=== PATIENT | male | born 1965 | race African-American/Black ===

== ENCOUNTER 2016-12-02 13:07 | Inpatient (IN) | payer OTHER ==
[2016-12-02 16:00] VITALS: BMI 27.3
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
[2016-12-02] MEDS ORDERED: guaiFENesin/D-METHORPHAN HB 10 ML UNIT-DOSE CUPS PO PRN (17:34)
[2016-12-02] MEDS ORDERED: MENTHOL/PHENOL 1 EACH UD MM PRN (17:34)
[2016-12-02] MEDS ORDERED: MAG HYDROX/AL HYDROX/SIMETH 30 ML UNIT-DOSE CUP PO PRN (17:34)
[2016-12-02] MEDS ORDERED: ACETAMINOPHEN 325 MG TABLET (FP) PO PRN (17:34)
[2016-12-02] MEDS ORDERED: LOPERAMIDE HCL 2 MG CAPSULE PO PRN (17:34)
[2016-12-02] MEDS ORDERED: P-EPHED 60MG/TRIPROLIDI 2.5MG TABLET PO PRN (17:34)
[2016-12-02] MEDS ORDERED: MAGNESIUM HYDROX 2400MG/30ML ORAL SUSPENSION 30 ML CUP PO PRN (17:34)
[2016-12-02] MEDS ORDERED: MAGNESIUM CITRATE 300 ML BOTTLE PO PRN (17:34)
[2016-12-02] MEDS ORDERED: diphenhydrAMINE HCL 50 MG CAPSULE PO PRN (17:34)
--- NOTE | 2016-12-02 20:26 | PN ---
[facility] Progress Note Note: Psychiatry Attending-planning consultant note : Called by nurse to enter orders for medications for Jose Sage. 51 y/o male with issues of cocaine,marijuana,nicotine dependence. Co-morbid with bipolar II disorder.[facility] report is appreciated.Normal vitals. Patient completed detox at [facility].Discharged this morning. Medications :risperdal 1 mg po bid + gabapentin 600 mg po tid + zoloft 100 mg po daily. Reconciled.Doses confirmed via review of pharmacy claims (10/20/16 + 11/08/16) @ [employer]. Brief contact with the patient by telephone.History taken and medications verified.Clear historian. Orders entered for : Gabapentin 600 mg po tid Zoloft 100 mg po daily Risperdal 1 mg po bid Side effects/benefits reviewed with patient. Mr Sage insists on continuing his medications. Discussed with nurse on duty.
[2016-12-02] MEDS ORDERED: GABAPENTIN 300 MG CAPSULE (FP) PO SCH (22:00)
[2016-12-02] MEDS: risperiDONE 1 MG TABLET (FP) PO SCH (22:11)
[2016-12-02] MEDS: THIAMINE HCL 100 MG TABLET (FP) PO SCH (22:12)
[2016-12-02] MEDS: GABAPENTIN 300 MG CAPSULE (FP) PO SCH (22:12)
[2016-12-02 23:39] LABS: URINE APPEARANCE CLEAR; URINE BILIRUBIN NEGATIVE (NEGATIVE); URINE BLOOD NEGATIVE (NEGATIVE); URINE COLOR YELLOW; URINE GLUCOSE (UA) NEGATIVE (NEGATIVE); URINE KETONE NEGATIVE (NEGATIVE); URINE LEUK ESTERASE NEGATIVE (NEGATIVE); URINE NITRITE NEGATIVE (NEGATIVE); URINE PROTEIN NEGATIVE (NEGATIVE); URINE UROBILINOGEN NEGATIVE E.U./dl (0.2-1.0)
[2016-12-03] MEDS ORDERED: INFLUENZA VACCINE 45 MCG/0.5 ML (MDV 16-17) IM ONE ×2 (06:00→12:00)
[2016-12-03] MEDS: GABAPENTIN 300 MG CAPSULE (FP) PO SCH ×3 (06:32→21:51)
[2016-12-03 10:08] LABS: ALBUMIN 3.4 g/dl (3.4-5.0); ANION GAP 8 (8-16); CALCIUM 8.6 mg/dL (8.5-10.1); CO2 26 mmol/L (21-32); GLUCOSE,RANDOM 88 mg/dL (74-106)
[2016-12-03 10:11] LABS: ALK PHOS 74 U/L (45-117); BILIRUBIN,TOTAL 0.2 mg/dL (0.2-1.0); CREATININE 0.8 mg/dL (0.7-1.3); SGOT/AST 15 U/L (15-37); SGPT/ALT 26 U/L (12-78); TOT PROT 6.8 g/dl (6.4-8.2)
[2016-12-03] MEDS: PRENATAL VITAMINS W/ FOLIC ACID TABLET (FP) PO SCH (10:11)
[2016-12-03] MEDS: risperiDONE 1 MG TABLET (FP) PO SCH ×2 (10:11→21:51)
[2016-12-03] MEDS: SERTRALINE HCL 50 MG TABLET (FP) PO SCH (10:11)
[2016-12-03] MEDS: NICOTINE 14 MG/24 HOURS TOPICAL PATCH TD SCH (10:13)
--- NOTE | 2016-12-03 11:10 | EKG ---
Test Reason : Blood Pressure : / mmHG Vent. Rate : 071 BPM Atrial Rate : 065 BPM P-R Int : 000 ms QRS Dur : 102 ms QT Int : 404 ms P-R-T Axes : 000 060 061 degrees QTc Int : 439 ms POOR DATA QUALITY, INTERPRETATION MAY BE ADVERSELY AFFECTED NORMAL SINUS RHYTHM SEPTAL INFARCT , AGE UNDETERMINED ABNORMAL ECG NO PREVIOUS ECGS AVAILABLE Confirmed by EDDIE LI MD ([id number]) on 12/03/2016 11:10:32 AM Referred By: Confirmed By:EDDIE LI MD
[2016-12-03 11:59] LABS: HIV 1 & 2 AB NEGATIVE; HIV 1 AGp24 NEGATIVE
[2016-12-03 15:33] LABS: MCH 28.8 pg (25.7-33.7); MCHC 33.3 g/dl (32.0-35.9); MEAN CELL VOLUME 86.5 fl (80-96); MEAN PLT VOLUME 7.4 fl (7.5-11.1); PLATELET COUNT 267 K/MM3 (134-434); RDW 13.7 % (11.9-15.9); WHITE BLOOD COUNT 4.8 K/mm3 (4.0-10.0)
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
[2016-12-03] MEDS: THIAMINE HCL 100 MG TABLET (FP) PO SCH (21:51)
[2016-12-04] MEDS: GABAPENTIN 300 MG CAPSULE (FP) PO SCH ×3 (06:21→21:38)
[2016-12-04] MEDS: risperiDONE 1 MG TABLET (FP) PO SCH ×2 (09:58→21:38)
[2016-12-04] MEDS: NICOTINE 14 MG/24 HOURS TOPICAL PATCH TD SCH (09:58)
[2016-12-04] MEDS: PRENATAL VITAMINS W/ FOLIC ACID TABLET (FP) PO SCH (09:58)
[2016-12-04] MEDS: SERTRALINE HCL 50 MG TABLET (FP) PO SCH (09:58)
[2016-12-04] MEDS: THIAMINE HCL 100 MG TABLET (FP) PO SCH (21:38)
[2016-12-05] MEDS: GABAPENTIN 300 MG CAPSULE (FP) PO SCH ×3 (06:26→21:11)
[2016-12-05] MEDS: NICOTINE 14 MG/24 HOURS TOPICAL PATCH TD SCH (10:02)
[2016-12-05] MEDS: SERTRALINE HCL 50 MG TABLET (FP) PO SCH (10:02)
[2016-12-05] MEDS: PRENATAL VITAMINS W/ FOLIC ACID TABLET (FP) PO SCH (10:02)
[2016-12-05] MEDS: risperiDONE 1 MG TABLET (FP) PO SCH ×2 (10:02→21:11)
[2016-12-05] MEDS: THIAMINE HCL 100 MG TABLET (FP) PO SCH (21:11)
[2016-12-06] MEDS: GABAPENTIN 300 MG CAPSULE (FP) PO SCH ×3 (07:01→21:34)
[2016-12-06] MEDS: NICOTINE 14 MG/24 HOURS TOPICAL PATCH TD SCH (09:51)
[2016-12-06] MEDS: risperiDONE 1 MG TABLET (FP) PO SCH ×2 (09:51→21:33)
[2016-12-06] MEDS: SERTRALINE HCL 50 MG TABLET (FP) PO SCH (09:51)
[2016-12-06] MEDS: PRENATAL VITAMINS W/ FOLIC ACID TABLET (FP) PO SCH (09:51)
[2016-12-06] MEDS: THIAMINE HCL 100 MG TABLET (FP) PO SCH (21:33)
[2016-12-07] MEDS: GABAPENTIN 300 MG CAPSULE (FP) PO SCH ×3 (06:22→21:24)
[2016-12-07] MEDS: SERTRALINE HCL 50 MG TABLET (FP) PO SCH (10:00)
[2016-12-07] MEDS: risperiDONE 1 MG TABLET (FP) PO SCH ×2 (10:00→21:23)
[2016-12-07] MEDS: PRENATAL VITAMINS W/ FOLIC ACID TABLET (FP) PO SCH (10:00)
[2016-12-07] MEDS: NICOTINE 14 MG/24 HOURS TOPICAL PATCH TD SCH (10:01)
[2016-12-07] MEDS: hydrOXYzine PAMOATE 50 MG CAPSULE (FP) PO PRN (15:22)
[2016-12-07] MEDS: NICOTINE POLACRILEX 2 MG GUM BC PRN (15:23)
[2016-12-07] MEDS: THIAMINE HCL 100 MG TABLET (FP) PO SCH (21:24)
[2016-12-08] MEDS: GABAPENTIN 300 MG CAPSULE (FP) PO SCH ×3 (06:17→21:27)
[2016-12-08] MEDS: SERTRALINE HCL 50 MG TABLET (FP) PO SCH (09:36)
[2016-12-08] MEDS: PRENATAL VITAMINS W/ FOLIC ACID TABLET (FP) PO SCH (09:36)
[2016-12-08] MEDS: risperiDONE 1 MG TABLET (FP) PO SCH ×2 (09:36→21:27)
[2016-12-08] MEDS: NICOTINE 14 MG/24 HOURS TOPICAL PATCH TD SCH (09:36)
[2016-12-08] MEDS: THIAMINE HCL 100 MG TABLET (FP) PO SCH (21:27)
[2016-12-08] MEDS: hydrOXYzine PAMOATE 50 MG CAPSULE (FP) PO PRN (21:27)
[2016-12-09] MEDS: GABAPENTIN 300 MG CAPSULE (FP) PO SCH ×3 (06:52→21:43)
[2016-12-09] MEDS: NICOTINE 14 MG/24 HOURS TOPICAL PATCH TD SCH (09:50)
[2016-12-09] MEDS: PRENATAL VITAMINS W/ FOLIC ACID TABLET (FP) PO SCH (09:50)
[2016-12-09] MEDS: SERTRALINE HCL 50 MG TABLET (FP) PO SCH (09:50)
[2016-12-09] MEDS: risperiDONE 1 MG TABLET (FP) PO SCH ×2 (09:50→21:43)
[2016-12-09] MEDS: THIAMINE HCL 100 MG TABLET (FP) PO SCH (21:43)
[2016-12-10] MEDS: GABAPENTIN 300 MG CAPSULE (FP) PO SCH ×3 (06:34→21:33)
[2016-12-10] MEDS: NICOTINE 14 MG/24 HOURS TOPICAL PATCH TD SCH (10:15)
[2016-12-10] MEDS: PRENATAL VITAMINS W/ FOLIC ACID TABLET (FP) PO SCH (10:15)
[2016-12-10] MEDS: risperiDONE 1 MG TABLET (FP) PO SCH ×2 (10:16→21:33)
[2016-12-10] MEDS: SERTRALINE HCL 50 MG TABLET (FP) PO SCH (10:16)
[2016-12-10] MEDS: THIAMINE HCL 100 MG TABLET (FP) PO SCH (21:33)
[2016-12-10] MEDS: NICOTINE POLACRILEX 2 MG GUM BC PRN (21:34)
[2016-12-11] MEDS: GABAPENTIN 300 MG CAPSULE (FP) PO SCH ×3 (06:32→22:04)
[2016-12-11] MEDS: risperiDONE 1 MG TABLET (FP) PO SCH ×2 (09:38→22:04)
[2016-12-11] MEDS: PRENATAL VITAMINS W/ FOLIC ACID TABLET (FP) PO SCH (09:38)
[2016-12-11] MEDS: SERTRALINE HCL 50 MG TABLET (FP) PO SCH (09:38)
[2016-12-11] MEDS: NICOTINE 14 MG/24 HOURS TOPICAL PATCH TD SCH (09:38)
[2016-12-11] MEDS: THIAMINE HCL 100 MG TABLET (FP) PO SCH (22:04)
[2016-12-11] MEDS: NICOTINE POLACRILEX 2 MG GUM BC PRN (22:05)
[2016-12-12] MEDS: GABAPENTIN 300 MG CAPSULE (FP) PO SCH ×3 (07:02→21:31)
[2016-12-12] MEDS: risperiDONE 1 MG TABLET (FP) PO SCH ×2 (09:46→21:31)
[2016-12-12] MEDS: PRENATAL VITAMINS W/ FOLIC ACID TABLET (FP) PO SCH (09:46)
[2016-12-12] MEDS: SERTRALINE HCL 50 MG TABLET (FP) PO SCH (09:46)
[2016-12-12] MEDS: NICOTINE 14 MG/24 HOURS TOPICAL PATCH TD SCH (09:47)
[2016-12-12] MEDS: THIAMINE HCL 100 MG TABLET (FP) PO SCH (21:31)
[2016-12-13] MEDS: GABAPENTIN 300 MG CAPSULE (FP) PO SCH ×3 (06:22→21:47)
[2016-12-13] MEDS: PRENATAL VITAMINS W/ FOLIC ACID TABLET (FP) PO SCH (10:07)
[2016-12-13] MEDS: SERTRALINE HCL 50 MG TABLET (FP) PO SCH (10:08)
[2016-12-13] MEDS: risperiDONE 1 MG TABLET (FP) PO SCH ×2 (10:08→21:47)
[2016-12-13] MEDS: NICOTINE 14 MG/24 HOURS TOPICAL PATCH TD SCH (10:09)
[2016-12-13] MEDS: IBUPROFEN 400 MG TABLET (FP) PO PRN (11:11)
[2016-12-13] MEDS ORDERED: LIDOCAINE 5% TOPICAL PATCH TP ONE (12:15)
[2016-12-13] MEDS: THIAMINE HCL 100 MG TABLET (FP) PO SCH (21:47)
[2016-12-14] MEDS: GABAPENTIN 300 MG CAPSULE (FP) PO SCH ×3 (06:18→22:21)
[2016-12-14] MEDS: NICOTINE POLACRILEX 2 MG GUM BC PRN (06:20)
[2016-12-14] MEDS: PRENATAL VITAMINS W/ FOLIC ACID TABLET (FP) PO SCH (10:39)
[2016-12-14] MEDS: risperiDONE 1 MG TABLET (FP) PO SCH ×2 (10:39→22:21)
[2016-12-14] MEDS: NICOTINE 14 MG/24 HOURS TOPICAL PATCH TD SCH (10:39)
[2016-12-14] MEDS: SERTRALINE HCL 50 MG TABLET (FP) PO SCH (10:39)
[2016-12-14] MEDS: LIDOCAINE 5% TOPICAL PATCH TP SCH (10:39)
[2016-12-14] MEDS: THIAMINE HCL 100 MG TABLET (FP) PO SCH (22:22)
[2016-12-15] MEDS: GABAPENTIN 300 MG CAPSULE (FP) PO SCH ×3 (06:36→21:55)
[2016-12-15] MEDS: NICOTINE 14 MG/24 HOURS TOPICAL PATCH TD SCH (09:46)
[2016-12-15] MEDS: SERTRALINE HCL 50 MG TABLET (FP) PO SCH (09:46)
[2016-12-15] MEDS: PRENATAL VITAMINS W/ FOLIC ACID TABLET (FP) PO SCH (09:46)
[2016-12-15] MEDS: risperiDONE 1 MG TABLET (FP) PO SCH ×2 (09:46→21:55)
[2016-12-15] MEDS: LIDOCAINE 5% TOPICAL PATCH TP SCH (09:46)
[2016-12-15] MEDS: THIAMINE HCL 100 MG TABLET (FP) PO SCH (21:55)
[2016-12-15] MEDS: NICOTINE POLACRILEX 2 MG GUM BC PRN (21:57)
[2016-12-16] MEDS: GABAPENTIN 300 MG CAPSULE (FP) PO SCH ×3 (06:52→21:44)
[2016-12-16] MEDS: SERTRALINE HCL 50 MG TABLET (FP) PO SCH (09:47)
[2016-12-16] MEDS: risperiDONE 1 MG TABLET (FP) PO SCH ×2 (09:47→21:44)
[2016-12-16] MEDS: NICOTINE 14 MG/24 HOURS TOPICAL PATCH TD SCH (09:47)
[2016-12-16] MEDS: PRENATAL VITAMINS W/ FOLIC ACID TABLET (FP) PO SCH (09:47)
[2016-12-16] MEDS: LIDOCAINE 5% TOPICAL PATCH TP SCH (09:47)
[2016-12-16] MEDS: THIAMINE HCL 100 MG TABLET (FP) PO SCH (21:44)
[2016-12-16] MEDS: CYCLOBENZAPRINE HCL 10 MG TABLET (FP) PO PRN (21:44)
[2016-12-17] MEDS: GABAPENTIN 300 MG CAPSULE (FP) PO SCH ×3 (06:27→21:46)
[2016-12-17] MEDS: LIDOCAINE 5% TOPICAL PATCH TP SCH (09:42)
[2016-12-17] MEDS: NICOTINE 14 MG/24 HOURS TOPICAL PATCH TD SCH (09:43)
[2016-12-17] MEDS: SERTRALINE HCL 50 MG TABLET (FP) PO SCH (09:43)
[2016-12-17] MEDS: risperiDONE 1 MG TABLET (FP) PO SCH ×2 (09:43→21:46)
[2016-12-17] MEDS: PRENATAL VITAMINS W/ FOLIC ACID TABLET (FP) PO SCH (09:43)
[2016-12-17] MEDS: NICOTINE POLACRILEX 2 MG GUM BC PRN ×2 (13:39→21:46)
[2016-12-17] MEDS: CYCLOBENZAPRINE HCL 10 MG TABLET (FP) PO PRN (21:45)
[2016-12-17] MEDS: THIAMINE HCL 100 MG TABLET (FP) PO SCH (21:45)
[2016-12-18] MEDS: GABAPENTIN 300 MG CAPSULE (FP) PO SCH ×3 (06:11→21:13)
[2016-12-18] MEDS: NICOTINE POLACRILEX 2 MG GUM BC PRN (06:12)
[2016-12-18] MEDS: PRENATAL VITAMINS W/ FOLIC ACID TABLET (FP) PO SCH (09:46)
[2016-12-18] MEDS: risperiDONE 1 MG TABLET (FP) PO SCH ×2 (09:47→21:13)
[2016-12-18] MEDS: NICOTINE 14 MG/24 HOURS TOPICAL PATCH TD SCH (09:47)
[2016-12-18] MEDS: SERTRALINE HCL 50 MG TABLET (FP) PO SCH (09:47)
[2016-12-18] MEDS: LIDOCAINE 5% TOPICAL PATCH TP SCH (09:49)
[2016-12-18] MEDS: IBUPROFEN 400 MG TABLET (FP) PO PRN (20:10)
[2016-12-18] MEDS: CYCLOBENZAPRINE HCL 10 MG TABLET (FP) PO PRN (21:13)
[2016-12-18] MEDS: THIAMINE HCL 100 MG TABLET (FP) PO SCH (21:14)
[2016-12-19] MEDS: GABAPENTIN 300 MG CAPSULE (FP) PO SCH ×3 (06:22→21:43)
[2016-12-19] MEDS: LIDOCAINE 5% TOPICAL PATCH TP SCH (09:38)
[2016-12-19] MEDS: PRENATAL VITAMINS W/ FOLIC ACID TABLET (FP) PO SCH (09:38)
[2016-12-19] MEDS: SERTRALINE HCL 50 MG TABLET (FP) PO SCH (09:39)
[2016-12-19] MEDS: risperiDONE 1 MG TABLET (FP) PO SCH ×2 (09:39→21:43)
[2016-12-19] MEDS: NICOTINE 14 MG/24 HOURS TOPICAL PATCH TD SCH (09:39)
[2016-12-19] MEDS: THIAMINE HCL 100 MG TABLET (FP) PO SCH (21:43)
[2016-12-19] MEDS: hydrOXYzine PAMOATE 50 MG CAPSULE (FP) PO PRN (21:43)
[2016-12-20] MEDS: GABAPENTIN 300 MG CAPSULE (FP) PO SCH ×3 (07:02→21:08)
[2016-12-20] MEDS: PRENATAL VITAMINS W/ FOLIC ACID TABLET (FP) PO SCH (09:53)
[2016-12-20] MEDS: risperiDONE 1 MG TABLET (FP) PO SCH ×2 (09:53→21:09)
[2016-12-20] MEDS: SERTRALINE HCL 50 MG TABLET (FP) PO SCH (09:53)
[2016-12-20] MEDS: NICOTINE 14 MG/24 HOURS TOPICAL PATCH TD SCH (09:53)
[2016-12-20] MEDS: LIDOCAINE 5% TOPICAL PATCH TP SCH (09:55)
[2016-12-20] MEDS: hydrOXYzine PAMOATE 50 MG CAPSULE (FP) PO PRN (21:09)
[2016-12-20] MEDS: THIAMINE HCL 100 MG TABLET (FP) PO SCH (21:09)
[2016-12-20] MEDS: CYCLOBENZAPRINE HCL 10 MG TABLET (FP) PO PRN (21:09)
[2016-12-21] MEDS: GABAPENTIN 300 MG CAPSULE (FP) PO SCH ×3 (06:44→21:05)
[2016-12-21] MEDS: risperiDONE 1 MG TABLET (FP) PO SCH ×2 (09:31→21:05)
[2016-12-21] MEDS: SERTRALINE HCL 50 MG TABLET (FP) PO SCH (09:31)
[2016-12-21] MEDS: LIDOCAINE 5% TOPICAL PATCH TP SCH (09:31)
[2016-12-21] MEDS: NICOTINE 14 MG/24 HOURS TOPICAL PATCH TD SCH (09:31)
[2016-12-21] MEDS: PRENATAL VITAMINS W/ FOLIC ACID TABLET (FP) PO SCH (09:31)
[2016-12-21] MEDS: THIAMINE HCL 100 MG TABLET (FP) PO SCH (21:04)
[2016-12-21] MEDS: NICOTINE POLACRILEX 2 MG GUM BC PRN (21:05)
[2016-12-22] MEDS: GABAPENTIN 300 MG CAPSULE (FP) PO SCH ×3 (06:27→21:01)
[2016-12-22] MEDS: PRENATAL VITAMINS W/ FOLIC ACID TABLET (FP) PO SCH (10:20)
[2016-12-22] MEDS: SERTRALINE HCL 50 MG TABLET (FP) PO SCH (10:20)
[2016-12-22] MEDS: LIDOCAINE 5% TOPICAL PATCH TP SCH (10:20)
[2016-12-22] MEDS: risperiDONE 1 MG TABLET (FP) PO SCH ×2 (10:20→21:00)
[2016-12-22] MEDS: NICOTINE 14 MG/24 HOURS TOPICAL PATCH TD SCH (10:20)
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
[2016-12-22] MEDS: NICOTINE POLACRILEX 2 MG GUM BC PRN ×2 (14:31→21:01)
[2016-12-22] MEDS: THIAMINE HCL 100 MG TABLET (FP) PO SCH (21:00)
[2016-12-23] MEDS: GABAPENTIN 300 MG CAPSULE (FP) PO SCH (06:16)
[2016-12-23 06:34] VITALS: BP 142/81; PULSE 67; TEMP 97.2
[2016-12-23] MEDS: LIDOCAINE 5% TOPICAL PATCH TP SCH (09:28)
[2016-12-23] MEDS: NICOTINE 14 MG/24 HOURS TOPICAL PATCH TD SCH (09:28)
[2016-12-23] MEDS: SERTRALINE HCL 50 MG TABLET (FP) PO SCH (09:28)
[2016-12-23] MEDS: risperiDONE 1 MG TABLET (FP) PO SCH (09:28)
[2016-12-23] MEDS: PRENATAL VITAMINS W/ FOLIC ACID TABLET (FP) PO SCH (09:28)
== END 2016-12-23 09:30 | disposition home or self-care (01) | DRG 772 ==
LOC: YASAS 13:07 → Y3W 15:48
PROVIDERS: ADMIT Psychiatry & Neurology Psychiatry; ATTEND Psychiatry & Neurology Psychiatry
PROC: HZ42ZZZ Group Counseling for Substance Abuse Treatment, Cognitive-Behavioral (ICD-10-PCS; principal; 2016-12-23)
DX: F10.230 Alcohol dependence with withdrawal, uncomplicated (principal); F14.20 Cocaine dependence, uncomplicated; F12.20 Cannabis dependence, uncomplicated; F17.213 Nicotine dependence, cigarettes, with withdrawal; F25.9 Schizoaffective disorder, unspecified; G62.9 Polyneuropathy, unspecified; M62.81 Muscle weakness (generalized); M54.5 Low back pain; V89.2XXS Person injured in unspecified motor-vehicle accident, traffic, sequela; Z99.3 Dependence on wheelchair; R26.2 Difficulty in walking, not elsewhere classified
CPT/HCPCS: 36415; 71020-TC; 80053; 81003; 85027; 86593; 87389; 93005; 93010; J2794

== ENCOUNTER 2019-08-22 15:01 | Inpatient (IN) | payer OTHER ==
[2019-08-22 18:03] VITALS: BMI 26.6
--- NOTE | 2019-08-22 19:09 | HP ---
CIWA Score - Admission Criteria [facility]ASAS Guidelines: Admission for Medically Managed Detox: Requires at least one of the followin. CIWA greater than 12 2. Seizures within the past 24 hours 3. Delirium tremens within the past 24 hours 4. Hallucinations within the past 24 hours 5. Acute intervention needed for co occurring medical disorder 6. Acute intervention needed for co occurring psychiatric disorder 7. Severe withdrawal that cannot be handled at a lower level of care (continued vomiting, continued diarrhea, abnormal vital signs) requiring intravenous medication and/or fluids 8. Admitting History and Physical - Admission History Source: Patient Limitations to Obtaining History: No Limitations - Smoking History Smoking history: Current every day smoker Have you smoked in the past 12 months: Yes Aproximately how many cigarettes per day: 10 - Alcohol/Substance Use Hx Alcohol Use: Yes (drinking since 16yo,vodka,beer 6 packs daily) History of Substance Use: reports: Cocaine - Social History Usual Living Arrangement: Yes: Other ([facility]) Do you think of yourself as: Straight/Heterosexual Occupation: Unemployed History of Recent Travel: No Admission ROS [facility] Chief Complaint: Seeking rehab services Allergies/Adverse Reactions: Allergies Allergy/AdvReac Type Severity Reaction Status Date / Time chlorpromazine HCl AdvReac Severe Rash Verified 08/22/19 17:45 [From Thorazine] haloperidol [From Haldol] AdvReac Severe stiffness Verified 08/22/19 17:45 History of Present Illness: 54 y.o. man with history of alcohol and cocaine dependence is here seeking rehab services. He was last here for rehab in 12/2016. He was admitted to [facility] from 08/10/19 to 08/22/19and was treated for schizoaffective disorder. He was brought here by our moving van driver for detox services. Exam Limitations: Other (Ambulates with the use of a rollator.) - Ebola screening Have you traveled outside of the country in the last 21 days: No Have you had contact with anyone from an Ebola affected area: No Do you have a fever: No - Review of Systems Constitutional: No Symptoms Reported EENT: reports: No Symptoms Reported Respiratory: reports: No Symptoms reported Cardiac: reports: No Symptoms Reported GI: reports: No Symptoms Reported : reports: No Symptoms Reported Musculoskeletal: reports: Back Pain, Joint Pain, Neck Pain Integumentary: reports: No Symptoms Reported Neuro: reports: No Symptoms reported Endocrine: reports: No Symptoms Reported Hematology: reports: No Symptoms Reported Psychiatric: reports: Depressed Other Systems: Reviewed and Negative Patient History - Patient Medical History Hx Anemia: No Hx Asthma: No Hx Chronic Obstructive Pulmonary Disease (COPD): No Hx Cancer: No Hx Cardiac Disorders: No Hx Congestive Heart Failure: No Hx Hypertension: No Hx Hypercholesterolemia: No Hx Pacemaker: No HX Cerebrovascular Accident: No Hx Seizures: No Hx Dementia: No Hx Diabetes: No Hx Gastrointestinal Disorders: No Hx Liver Disease: No Hx Genitourinary Disorders: No Hx Sexually Transmitted Disorders: No Hx Renal Disease (ESRD): No Hx Thyroid Disease: No Hx Human Immunodeficiency Virus (HIV): No Hx Hepatitis C: No Hx Depression: Yes Hx Suicide Attempt: No (DENIES) Hx Bipolar Disorder: Yes Hx Schizophrenia: No - Patient Surgical History Past Surgical History: Yes Hx Neurologic Surgery: No Hx Cataract Extraction: No Hx Cardiac Surgery: No Hx Lung Surgery: No Hx Breast Surgery: No Hx Breast Biopsy: No Hx Abdominal Surgery: No Hx Appendectomy: No Hx Cholecystectomy: No Hx Genitourinary Surgery: No Hx Section: No Hx Orthopedic Surgery: Yes (Cervical fusion sx 2016) Anesthesia Reaction: No - PPD History Previous Implant?: Yes Documented Results: Positive w/o proof PPD to be Administered?: No - Reproductive History Patient is a Female of Child Bearing Age (11 -55 yrs old): No - Smoking Cessation Smoking history: Current every day smoker Have you smoked in the past 12 months: Yes Aproximately how many cigarettes per day: 10 Cigars Per Day: 0 Hx Chewing Tobacco Use: No Initiated information on smoking cessation: Yes 'Breaking Loose' booklet given: 08/22/19 - Substance & Tx. History Hx Alcohol Use: Yes Hx Substance Use: Yes Substance Use Type: Alcohol, Cocaine Hx Substance Use Treatment: Yes (Rehab: 2017) - Substances abused Alcohol Substance route: Oral Frequency: Daily Amount used: couple of pints of vodka/couple of 6 packs beers once in a while. Age of first use: 15 Date of last use: 08/08/19 Cocaine Substance route: Smoking Frequency: 3-6 times per week Amount used: 40 dollars Age of first use: 15 Date of last use: 08/08/19 Admission Physical Exam BHS - Vital Signs Vital Signs: Vital Signs - 24 hr 08/22/19 17:51 Temperature 96.6 F L Respiratory 20 Rate Blood Pressure 118/78 - Physical General Appearance: Yes: No Apparent Distress, Nourished, Appropriately Dressed HEENTM: Yes: Hearing grossly Normal, Normocephalic, Normal Voice, DIMITRIS Respiratory: Yes: Within Normal Limits, Chest Non-Tender, Lungs Clear Neck: Yes: Within Normal Limits, No masses,lesions,Nodules, Trachea in good position Breast: Yes: Breast Exam Deferred Cardiology: Yes: Regular Rhythm, Regular Rate Abdominal: Yes: Normal Bowel Sounds, Non Tender, Flat Genitourinary: Yes: Other (No complaints reported) Back: Yes: Normal Inspection Musculoskeletal: Yes: Back pain, Joint Stiffness Extremities: Yes: Normal Inspection, Non-Tender Neurological: Yes: Alert, Normal Mood/Affect, Normal Response Integumentary: Yes: Normal Color, Dry, Warm Lymphatic: Yes: Within Normal Limits - Diagnostic (1) Alcohol dependence with intoxication, uncomplicated Current Visit: Yes Status: Chronic (2) Uses roller walker Current Visit: Yes Status: Chronic (3) Neuropathy Current Visit: Yes Status: Chronic (4) Cocaine dependence, uncomplicated Current Visit: Yes Status: Chronic (5) Nicotine dependence Current Visit: Yes Status: Chronic Qualifiers: Nicotine product type: cigarettes Substance use status: in withdrawal Qualified Code(s): F17.213 - Nicotine dependence, cigarettes, with withdrawal (6) Herniated cervical disc Current Visit: Yes Status: Chronic (7) Scoliosis Current Visit: Yes Status: Chronic Cleared for Admission S - Detox or Rehab [facility] Level of Care: Observation Bed Detox Regimen/Protocol: Not Applicable Claeared for Rehab Admission: Yes Breathalyzer - Breathalyzer Breathalyzer: 0 Urine Drug Screen - Test Device Lot number: [id number] Expiration date: 04/15/21 - Control Is test valid?: Yes - Results Drug screen NEGATIVE: Yes Inpatient Rehab Admission - Rehab Decision to Admit Inpatient rehab admission?: Yes - Initial Determination Are CD services needed?: Yes Free of communicable disease: Yes Not in need of hospitalization: Yes - Rehab Admission Criteria Previous failed treatment: Yes Poor recovery environment: Yes Comorbidities: Yes Lacks judgement: Yes Patient is meeting Inpatient Rehab admission criteria:: Yes
[2019-08-22] MEDS ORDERED: MENTHOL/PHENOL 1 EACH UD MM PRN (19:15)
[2019-08-22] MEDS ORDERED: MAG HYDROX/AL HYDROX/SIMETH 30 ML UNIT-DOSE CUP PO PRN (19:15)
[2019-08-22] MEDS ORDERED: guaiFENesin 200 MG/10 ML 10 ML UNIT-DOSE CUPS PO PRN (19:15)
[2019-08-22] MEDS ORDERED: P-EPHED 60MG/TRIPROLIDI 2.5MG TABLET PO PRN (19:15)
[2019-08-22] MEDS ORDERED: hydrOXYzine PAMOATE 50 MG CAPSULE (FP) PO PRN (19:15)
[2019-08-22] MEDS ORDERED: MAGNESIUM CITRATE 300 ML BOTTLE PO PRN (19:15)
[2019-08-22] MEDS ORDERED: MAGNESIUM HYDROX 2400MG/30ML ORAL SUSPENSION 30 ML CUP PO PRN (19:15)
[2019-08-22] MEDS ORDERED: ACETAMINOPHEN 325 MG TABLET (FP) PO PRN (19:15)
[2019-08-22] MEDS ORDERED: LOPERAMIDE HCL 2 MG CAPSULE PO PRN (19:15)
[2019-08-22] MEDS: MELATONIN 5 MG TABLETS PO PRN (21:15)
[2019-08-22] MEDS: THIAMINE HCL 100 MG TABLET (FP) PO SCH (21:15)
[2019-08-22] MEDS: GABAPENTIN 400 MG CAPSULE (FP) PO SCH (21:15)
[2019-08-23] MEDS: GABAPENTIN 400 MG CAPSULE (FP) PO SCH ×3 (06:27→21:23)
[2019-08-23] MEDS: IBUPROFEN 400 MG TABLET (FP) PO PRN (10:28)
[2019-08-23] MEDS: PRENATAL VITAMINS W/ FOLIC ACID TABLET (FP) PO SCH (10:28)
[2019-08-23] MEDS: NICOTINE 14 MG/24 HOURS TOPICAL PATCH TD SCH (10:28)
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
[2019-08-23 11:58] LABS: HEMATOCRIT 42.1 % (35.4-49); MCH 29.3 pg (25.7-33.7); MCHC 33.2 g/dl (32.0-35.9); MEAN CELL VOLUME 88.1 fl (80-96); MEAN PLT VOLUME 7.4 fl (7.5-11.1); PLATELET COUNT 234 K/MM3 (134-434); RBC 4.78 M/mm3 (4.00-5.60); RDW 13.1 % (11.9-15.9); WHITE BLOOD COUNT 5.3 K/mm3 (4.0-10.0)
[2019-08-23 12:01] LABS: URINE APPEARANCE CLEAR; URINE BILIRUBIN NEGATIVE (NEGATIVE); URINE COLOR YELLOW; URINE GLUCOSE (UA) NEGATIVE (NEGATIVE); URINE KETONE NEGATIVE (NEGATIVE); URINE LEUK ESTERASE NEGATIVE (NEGATIVE); URINE NITRITE NEGATIVE (NEGATIVE); URINE PROTEIN NEGATIVE (NEGATIVE); URINE UROBILINOGEN 0.2 mg/dL (0.2-1.0)
[2019-08-23 12:28] LABS: ALBUMIN 3.5 g/dl (3.4-5.0); BILIRUBIN,TOTAL 0.2 mg/dL (0.2-1); BLOOD UREA NITROGEN 11.6 mg/dL (7-18); CALCIUM 8.9 mg/dL (8.5-10.1); CREATININE 0.9 mg/dL (0.55-1.3); POTASSIUM 4.2 mmol/L (3.5-5.1)
--- NOTE | 2019-08-23 12:53 | PN ---
[facility] Progress Note Note: Vital Signs Temperature 97.6 F 08/23/19 07:09 Pulse Rate 82 08/23/19 07:09 Respiratory Rate 18 08/23/19 07:09 Blood Pressure 127/74 08/23/19 07:09 O2 Sat by Pulse Oximetry (%) Laboratory Last Values WBC 5.3 K/mm3 (4.0-10.0) 08/23/19 08:10 RBC 4.78 M/mm3 (4.00-5.60) 08/23/19 08:10 Hgb 14.0 GM/dL (11.7-16.9) 08/23/19 08:10 Hct 42.1 % (35.4-49) 08/23/19 08:10 MCV 88.1 fl (80-96) 08/23/19 08:10 MCH 29.3 pg (25.7-33.7) 08/23/19 08:10 MCHC 33.2 g/dl (32.0-35.9) 08/23/19 08:10 RDW 13.1 % (11.9-15.9) 08/23/19 08:10 Plt Count 234 K/MM3 (134-434) 08/23/19 08:10 MPV 7.4 fl (7.5-11.1) L 08/23/19 08:10 Sodium 141 mmol/L (136-145) 08/23/19 08:10 Potassium 4.2 mmol/L (3.5-5.1) 08/23/19 08:10 Chloride 109 mmol/L (98-107) H 08/23/19 08:10 Carbon Dioxide 27 mmol/L (21-32) 08/23/19 08:10 Anion Gap 6 MMOL/L (8-16) L 08/23/19 08:10 BUN 11.6 mg/dL (7-18) 08/23/19 08:10 Creatinine 0.9 mg/dL (0.55-1.3) 08/23/19 08:10 Est GFR (CKD-EPI)AfAm 111.05 08/23/19 08:10 Est GFR (CKD-EPI)NonAf 95.81 08/23/19 08:10 Random Glucose 118 mg/dL (74-106) H 08/23/19 08:10 Calcium 8.9 mg/dL (8.5-10.1) 08/23/19 08:10 Total Bilirubin 0.2 mg/dL (0.2-1) 08/23/19 08:10 AST 13 U/L (15-37) L 08/23/19 08:10 ALT 31 U/L (13-61) 08/23/19 08:10 Alkaline Phosphatase 82 U/L (45-117) 08/23/19 08:10 Total Protein 7.0 g/dl (6.4-8.2) 08/23/19 08:10 Albumin 3.5 g/dl (3.4-5.0) 08/23/19 08:10 Urine Color Yellow 08/23/19 09:50 Urine Appearance Clear 08/23/19 09:50 Urine pH 6.0 (5.0-8.0) 08/23/19 09:50 Ur Specific [place] 1.024 (1.010-1.035) 08/23/19 09:50 Urine Protein Negative (NEGATIVE) 08/23/19 09:50 Urine Glucose (UA) Negative (NEGATIVE) 08/23/19 09:50 Urine Ketones Negative (NEGATIVE) 08/23/19 09:50 Urine Blood Negative (NEGATIVE) 08/23/19 09:50 Urine Nitrite Negative (NEGATIVE) 08/23/19 09:50 Urine Bilirubin Negative (NEGATIVE) 08/23/19 09:50 Urine Urobilinogen 0.2 mg/dL (0.2-1.0) 08/23/19 09:50 Ur Leukocyte Esterase Negative (NEGATIVE) 08/23/19 09:50 labs reviewed continue to monitor
[2019-08-23] MEDS: THIAMINE HCL 100 MG TABLET (FP) PO SCH (21:25)
[2019-08-23] MEDS: MELATONIN 5 MG TABLETS PO PRN (21:25)
[2019-08-23] MEDS: risperiDONE 2 MG TABLET PO SCH (21:25)
[2019-08-23] MEDS: BENZTROPINE MESYLATE 1 MG TABLET (FP) PO SCH (21:25)
[2019-08-24] MEDS: GABAPENTIN 400 MG CAPSULE (FP) PO SCH ×3 (06:22→21:17)
[2019-08-24] MEDS: DULoxetine HCL 60 MG CAPSULE.DR PO SCH (10:28)
[2019-08-24] MEDS: PRENATAL VITAMINS W/ FOLIC ACID TABLET (FP) PO SCH (10:28)
[2019-08-24] MEDS: risperiDONE 2 MG TABLET PO SCH ×2 (10:28→21:17)
[2019-08-24] MEDS: NICOTINE 14 MG/24 HOURS TOPICAL PATCH TD SCH (10:28)
[2019-08-24] MEDS: BENZTROPINE MESYLATE 1 MG TABLET (FP) PO SCH ×2 (10:28→21:17)
[2019-08-24] MEDS: THIAMINE HCL 100 MG TABLET (FP) PO SCH (21:17)
[2019-08-24] MEDS: MELATONIN 5 MG TABLETS PO PRN (21:17)
[2019-08-25] MEDS: GABAPENTIN 400 MG CAPSULE (FP) PO SCH ×3 (06:04→21:49)
[2019-08-25] MEDS ORDERED: PT OWN MED DRAWER 7, Y5N ONE (09:23)
[2019-08-25] MEDS: DULoxetine HCL 60 MG CAPSULE.DR PO SCH (10:48)
[2019-08-25] MEDS: BENZTROPINE MESYLATE 1 MG TABLET (FP) PO SCH ×2 (10:48→21:49)
[2019-08-25] MEDS: PRENATAL VITAMINS W/ FOLIC ACID TABLET (FP) PO SCH (10:48)
[2019-08-25] MEDS: NICOTINE 14 MG/24 HOURS TOPICAL PATCH TD SCH (10:48)
[2019-08-25] MEDS: risperiDONE 2 MG TABLET PO SCH ×2 (10:48→21:49)
[2019-08-25] MEDS: NICOTINE POLACRILEX 2 MG GUM BC PRN (10:49)
[2019-08-25] MEDS: THIAMINE HCL 100 MG TABLET (FP) PO SCH (21:49)
[2019-08-25] MEDS: MELATONIN 5 MG TABLETS PO PRN (21:49)
[2019-08-26] MEDS: GABAPENTIN 400 MG CAPSULE (FP) PO SCH ×3 (06:28→21:24)
[2019-08-26] MEDS: risperiDONE 2 MG TABLET PO SCH ×2 (10:02→21:24)
[2019-08-26] MEDS: BENZTROPINE MESYLATE 1 MG TABLET (FP) PO SCH ×2 (10:02→21:24)
[2019-08-26] MEDS: PRENATAL VITAMINS W/ FOLIC ACID TABLET (FP) PO SCH (10:02)
[2019-08-26] MEDS: NICOTINE 14 MG/24 HOURS TOPICAL PATCH TD SCH (10:02)
[2019-08-26] MEDS: DULoxetine HCL 60 MG CAPSULE.DR PO SCH (10:03)
[2019-08-26] MEDS: THIAMINE HCL 100 MG TABLET (FP) PO SCH (21:24)
[2019-08-27] MEDS: GABAPENTIN 400 MG CAPSULE (FP) PO SCH ×3 (06:26→21:31)
[2019-08-27] MEDS: risperiDONE 2 MG TABLET PO SCH ×2 (10:36→21:31)
[2019-08-27] MEDS: NICOTINE 14 MG/24 HOURS TOPICAL PATCH TD SCH (10:36)
[2019-08-27] MEDS: NICOTINE POLACRILEX 2 MG GUM BC PRN (10:36)
[2019-08-27] MEDS: PRENATAL VITAMINS W/ FOLIC ACID TABLET (FP) PO SCH (10:36)
[2019-08-27] MEDS: BENZTROPINE MESYLATE 1 MG TABLET (FP) PO SCH ×2 (10:36→21:31)
[2019-08-27] MEDS: DULoxetine HCL 60 MG CAPSULE.DR PO SCH (10:37)
[2019-08-27] MEDS: MELATONIN 5 MG TABLETS PO PRN (21:31)
[2019-08-27] MEDS: THIAMINE HCL 100 MG TABLET (FP) PO SCH (21:31)
[2019-08-28] MEDS: GABAPENTIN 400 MG CAPSULE (FP) PO SCH ×3 (06:19→21:15)
[2019-08-28] MEDS: BENZTROPINE MESYLATE 1 MG TABLET (FP) PO SCH ×2 (10:12→21:15)
[2019-08-28] MEDS: risperiDONE 2 MG TABLET PO SCH ×2 (10:12→21:15)
[2019-08-28] MEDS: PRENATAL VITAMINS W/ FOLIC ACID TABLET (FP) PO SCH (10:12)
[2019-08-28] MEDS: DULoxetine HCL 60 MG CAPSULE.DR PO SCH (10:13)
[2019-08-28] MEDS: NICOTINE 14 MG/24 HOURS TOPICAL PATCH TD SCH (10:13)
[2019-08-28] MEDS: THIAMINE HCL 100 MG TABLET (FP) PO SCH (21:15)
[2019-08-28] MEDS: MELATONIN 5 MG TABLETS PO PRN (21:15)
[2019-08-29] MEDS: GABAPENTIN 400 MG CAPSULE (FP) PO SCH ×3 (05:58→21:42)
[2019-08-29] MEDS ORDERED: DULoxetine HCL 30 MG CAPSULE.DR PO ONE (08:58)
[2019-08-29] MEDS: BENZTROPINE MESYLATE 1 MG TABLET (FP) PO SCH ×2 (09:46→21:42)
[2019-08-29] MEDS: risperiDONE 2 MG TABLET PO SCH ×2 (09:46→21:42)
[2019-08-29] MEDS: DULoxetine HCL 60 MG CAPSULE.DR PO SCH (09:47)
[2019-08-29] MEDS: PRENATAL VITAMINS W/ FOLIC ACID TABLET (FP) PO SCH (09:47)
[2019-08-29] MEDS: NICOTINE 14 MG/24 HOURS TOPICAL PATCH TD SCH (09:47)
[2019-08-29] MEDS: THIAMINE HCL 100 MG TABLET (FP) PO SCH (21:42)
[2019-08-29] MEDS: MELATONIN 5 MG TABLETS PO PRN (21:42)
[2019-08-30] MEDS: GABAPENTIN 400 MG CAPSULE (FP) PO SCH ×3 (06:20→21:30)
[2019-08-30] MEDS ORDERED: PT OWN MED DRAWER 7, Y5N ONE (08:42)
[2019-08-30] MEDS: PRENATAL VITAMINS W/ FOLIC ACID TABLET (FP) PO SCH (10:26)
[2019-08-30] MEDS: DULoxetine HCL 60 MG CAPSULE.DR PO SCH (10:26)
[2019-08-30] MEDS: risperiDONE 2 MG TABLET PO SCH ×2 (10:26→21:30)
[2019-08-30] MEDS: BENZTROPINE MESYLATE 1 MG TABLET (FP) PO SCH ×2 (10:26→21:30)
[2019-08-30] MEDS: NICOTINE 14 MG/24 HOURS TOPICAL PATCH TD SCH (10:27)
[2019-08-30] MEDS: NICOTINE POLACRILEX 2 MG GUM BC PRN (10:27)
[2019-08-30] MEDS: THIAMINE HCL 100 MG TABLET (FP) PO SCH (21:30)
[2019-08-30] MEDS: MELATONIN 5 MG TABLETS PO PRN (21:30)
[2019-08-31] MEDS: GABAPENTIN 400 MG CAPSULE (FP) PO SCH ×3 (06:08→21:35)
[2019-08-31] MEDS: PRENATAL VITAMINS W/ FOLIC ACID TABLET (FP) PO SCH (09:55)
[2019-08-31] MEDS: DULoxetine HCL 60 MG CAPSULE.DR PO SCH (09:55)
[2019-08-31] MEDS: NICOTINE 14 MG/24 HOURS TOPICAL PATCH TD SCH (09:55)
[2019-08-31] MEDS: BENZTROPINE MESYLATE 1 MG TABLET (FP) PO SCH ×2 (09:55→21:34)
[2019-08-31] MEDS: risperiDONE 2 MG TABLET PO SCH ×2 (09:55→21:35)
[2019-08-31] MEDS: THIAMINE HCL 100 MG TABLET (FP) PO SCH (21:34)
[2019-08-31] MEDS: MELATONIN 5 MG TABLETS PO PRN (21:35)
[2019-09-01] MEDS: GABAPENTIN 400 MG CAPSULE (FP) PO SCH ×3 (06:26→21:17)
[2019-09-01] MEDS: risperiDONE 2 MG TABLET PO SCH ×2 (09:43→21:17)
[2019-09-01] MEDS: PRENATAL VITAMINS W/ FOLIC ACID TABLET (FP) PO SCH (09:43)
[2019-09-01] MEDS: DULoxetine HCL 60 MG CAPSULE.DR PO SCH (09:43)
[2019-09-01] MEDS: BENZTROPINE MESYLATE 1 MG TABLET (FP) PO SCH ×2 (09:43→21:17)
[2019-09-01] MEDS: NICOTINE POLACRILEX 2 MG GUM BC PRN (09:44)
[2019-09-01] MEDS: NICOTINE 14 MG/24 HOURS TOPICAL PATCH TD SCH (09:44)
[2019-09-01] MEDS: MELATONIN 5 MG TABLETS PO PRN (21:17)
[2019-09-01] MEDS: THIAMINE HCL 100 MG TABLET (FP) PO SCH (21:17)
[2019-09-02] MEDS: GABAPENTIN 400 MG CAPSULE (FP) PO SCH ×3 (06:28→21:25)
[2019-09-02] MEDS ORDERED: PT OWN MED DRAWER 7, Y5N ONE (08:41)
[2019-09-02] MEDS: PRENATAL VITAMINS W/ FOLIC ACID TABLET (FP) PO SCH (10:42)
[2019-09-02] MEDS: risperiDONE 2 MG TABLET PO SCH ×2 (10:42→21:25)
[2019-09-02] MEDS: BENZTROPINE MESYLATE 1 MG TABLET (FP) PO SCH ×2 (10:43→21:25)
[2019-09-02] MEDS: NICOTINE 14 MG/24 HOURS TOPICAL PATCH TD SCH (10:43)
[2019-09-02] MEDS: DULoxetine HCL 60 MG CAPSULE.DR PO SCH (10:43)
[2019-09-02] MEDS: THIAMINE HCL 100 MG TABLET (FP) PO SCH (21:25)
[2019-09-02] MEDS: MELATONIN 5 MG TABLETS PO PRN (21:25)
[2019-09-03] MEDS: GABAPENTIN 400 MG CAPSULE (FP) PO SCH ×3 (05:58→21:52)
[2019-09-03] MEDS: NICOTINE POLACRILEX 2 MG GUM BC PRN (10:18)
[2019-09-03] MEDS: DULoxetine HCL 60 MG CAPSULE.DR PO SCH (10:18)
[2019-09-03] MEDS: risperiDONE 2 MG TABLET PO SCH ×2 (10:18→21:52)
[2019-09-03] MEDS: PRENATAL VITAMINS W/ FOLIC ACID TABLET (FP) PO SCH (10:18)
[2019-09-03] MEDS: NICOTINE 14 MG/24 HOURS TOPICAL PATCH TD SCH (10:18)
[2019-09-03] MEDS: BENZTROPINE MESYLATE 1 MG TABLET (FP) PO SCH ×2 (10:42→21:52)
[2019-09-03] MEDS: THIAMINE HCL 100 MG TABLET (FP) PO SCH (21:52)
[2019-09-03] MEDS: TOLNAFTATE 1% CREAM 15 GM TUBE TP SCH (21:52)
[2019-09-03] MEDS: MELATONIN 5 MG TABLETS PO PRN (21:52)
[2019-09-04] MEDS: GABAPENTIN 400 MG CAPSULE (FP) PO SCH ×3 (06:02→21:27)
[2019-09-04] MEDS: PRENATAL VITAMINS W/ FOLIC ACID TABLET (FP) PO SCH (10:25)
[2019-09-04] MEDS: DULoxetine HCL 60 MG CAPSULE.DR PO SCH (10:25)
[2019-09-04] MEDS: risperiDONE 2 MG TABLET PO SCH ×2 (10:25→21:27)
[2019-09-04] MEDS: NICOTINE 14 MG/24 HOURS TOPICAL PATCH TD SCH (10:25)
[2019-09-04] MEDS: BENZTROPINE MESYLATE 1 MG TABLET (FP) PO SCH ×2 (10:25→21:27)
[2019-09-04] MEDS: TOLNAFTATE 1% CREAM 15 GM TUBE TP SCH ×2 (10:27→21:27)
[2019-09-04] MEDS: MELATONIN 5 MG TABLETS PO PRN (21:27)
[2019-09-04] MEDS: THIAMINE HCL 100 MG TABLET (FP) PO SCH (21:27)
[2019-09-05] MEDS: GABAPENTIN 400 MG CAPSULE (FP) PO SCH ×3 (06:17→21:46)
[2019-09-05] MEDS ORDERED: PT OWN MED DRAWER 7, Y5N ONE (08:40)
[2019-09-05] MEDS: DULoxetine HCL 60 MG CAPSULE.DR PO SCH (09:07)
[2019-09-05] MEDS: PRENATAL VITAMINS W/ FOLIC ACID TABLET (FP) PO SCH (09:07)
[2019-09-05] MEDS: BENZTROPINE MESYLATE 1 MG TABLET (FP) PO SCH ×2 (09:07→21:46)
[2019-09-05] MEDS: risperiDONE 2 MG TABLET PO SCH ×2 (09:07→21:46)
[2019-09-05] MEDS: NICOTINE 14 MG/24 HOURS TOPICAL PATCH TD SCH (09:08)
[2019-09-05] MEDS: NICOTINE POLACRILEX 2 MG GUM BC PRN (09:08)
[2019-09-05] MEDS: TOLNAFTATE 1% CREAM 15 GM TUBE TP SCH ×2 (10:28→21:46)
[2019-09-05] MEDS: THIAMINE HCL 100 MG TABLET (FP) PO SCH (21:46)
[2019-09-06] MEDS: GABAPENTIN 400 MG CAPSULE (FP) PO SCH ×3 (06:26→21:16)
[2019-09-06] MEDS: NICOTINE 14 MG/24 HOURS TOPICAL PATCH TD SCH (10:07)
[2019-09-06] MEDS: DULoxetine HCL 60 MG CAPSULE.DR PO SCH (10:07)
[2019-09-06] MEDS: BENZTROPINE MESYLATE 1 MG TABLET (FP) PO SCH ×2 (10:07→21:16)
[2019-09-06] MEDS: PRENATAL VITAMINS W/ FOLIC ACID TABLET (FP) PO SCH (10:07)
[2019-09-06] MEDS: TOLNAFTATE 1% CREAM 15 GM TUBE TP SCH ×2 (10:07→21:16)
[2019-09-06] MEDS: risperiDONE 2 MG TABLET PO SCH ×2 (10:07→21:16)
--- NOTE | 2019-09-06 12:31 | PN ---
S Progress Note (SOAP) Subjective: c/o left foot swelling. Wheelchair bound and using a wheelchair without leg rests so feet are dangling. Objective: General: No apparent distress HEENTM: Normocephalic Lungs: clear Heart: S1 S2 Extremities: 2+ edema, left foot to ankle,. 1+ edema right foot. 09/06/19 12:32 Assessment: bilateral lower extremity edema 09/06/19 12:39 Plan: Encouraged patient to elevate legs when at rest. Taught patient exercises to help contract muscles and stimulate fluid movement. Advised patient to elevate legs at rest. Ordered compression stockings and HCTZ 12.5 mg daily.
[2019-09-06] MEDS: HYDROCHLOROTHIAZIDE 12.5 MG CAPSULE (FP) PO SCH (15:24)
[2019-09-06] MEDS: THIAMINE HCL 100 MG TABLET (FP) PO SCH (21:16)
[2019-09-06] MEDS: MELATONIN 5 MG TABLETS PO PRN (21:16)
[2019-09-07] MEDS: GABAPENTIN 400 MG CAPSULE (FP) PO SCH ×3 (06:16→21:27)
[2019-09-07] MEDS ORDERED: PT OWN MED DRAWER 7, Y5N ONE (09:00)
[2019-09-07] MEDS: BENZTROPINE MESYLATE 1 MG TABLET (FP) PO SCH ×2 (10:21→21:27)
[2019-09-07] MEDS: HYDROCHLOROTHIAZIDE 12.5 MG CAPSULE (FP) PO SCH (10:21)
[2019-09-07] MEDS: PRENATAL VITAMINS W/ FOLIC ACID TABLET (FP) PO SCH (10:21)
[2019-09-07] MEDS: DULoxetine HCL 60 MG CAPSULE.DR PO SCH (10:22)
[2019-09-07] MEDS: risperiDONE 2 MG TABLET PO SCH ×2 (10:22→21:27)
[2019-09-07] MEDS: NICOTINE POLACRILEX 2 MG GUM BC PRN (10:23)
[2019-09-07] MEDS: TOLNAFTATE 1% CREAM 15 GM TUBE TP SCH ×2 (10:24→21:27)
[2019-09-07] MEDS: NICOTINE 14 MG/24 HOURS TOPICAL PATCH TD SCH (10:24)
[2019-09-07] MEDS: THIAMINE HCL 100 MG TABLET (FP) PO SCH (21:27)
[2019-09-07] MEDS: MELATONIN 5 MG TABLETS PO PRN (21:27)
[2019-09-08] MEDS: GABAPENTIN 400 MG CAPSULE (FP) PO SCH ×3 (06:21→21:37)
[2019-09-08] MEDS: HYDROCHLOROTHIAZIDE 12.5 MG CAPSULE (FP) PO SCH (09:56)
[2019-09-08] MEDS: TOLNAFTATE 1% CREAM 15 GM TUBE TP SCH ×2 (09:56→22:11)
[2019-09-08] MEDS: DULoxetine HCL 60 MG CAPSULE.DR PO SCH (09:56)
[2019-09-08] MEDS: risperiDONE 2 MG TABLET PO SCH ×2 (09:56→21:37)
[2019-09-08] MEDS: PRENATAL VITAMINS W/ FOLIC ACID TABLET (FP) PO SCH (09:56)
[2019-09-08] MEDS: BENZTROPINE MESYLATE 1 MG TABLET (FP) PO SCH ×2 (09:56→21:37)
[2019-09-08] MEDS: NICOTINE 14 MG/24 HOURS TOPICAL PATCH TD SCH (09:56)
[2019-09-08] MEDS: NICOTINE POLACRILEX 2 MG GUM BC PRN (18:50)
[2019-09-08] MEDS: THIAMINE HCL 100 MG TABLET (FP) PO SCH (21:37)
[2019-09-08] MEDS: MELATONIN 5 MG TABLETS PO PRN (21:38)
[2019-09-09] MEDS: GABAPENTIN 400 MG CAPSULE (FP) PO SCH ×3 (06:07→21:42)
[2019-09-09] MEDS: HYDROCHLOROTHIAZIDE 12.5 MG CAPSULE (FP) PO SCH (09:51)
[2019-09-09] MEDS: BENZTROPINE MESYLATE 1 MG TABLET (FP) PO SCH ×2 (09:51→21:42)
[2019-09-09] MEDS: DULoxetine HCL 60 MG CAPSULE.DR PO SCH (09:51)
[2019-09-09] MEDS: PRENATAL VITAMINS W/ FOLIC ACID TABLET (FP) PO SCH (09:51)
[2019-09-09] MEDS: risperiDONE 2 MG TABLET PO SCH ×2 (09:51→21:42)
[2019-09-09] MEDS: TOLNAFTATE 1% CREAM 15 GM TUBE TP SCH ×2 (09:52→21:41)
[2019-09-09] MEDS: NICOTINE 14 MG/24 HOURS TOPICAL PATCH TD SCH (09:52)
[2019-09-09] MEDS: NICOTINE POLACRILEX 2 MG GUM BC PRN (09:52)
[2019-09-09] MEDS: IBUPROFEN 400 MG TABLET (FP) PO PRN (09:52)
[2019-09-09] MEDS: MELATONIN 5 MG TABLETS PO PRN (21:42)
[2019-09-09] MEDS: THIAMINE HCL 100 MG TABLET (FP) PO SCH (21:43)
[2019-09-10] MEDS: GABAPENTIN 400 MG CAPSULE (FP) PO SCH ×3 (05:55→21:48)
[2019-09-10 07:19] VITALS: TEMP 97.8
[2019-09-10] MEDS: BENZTROPINE MESYLATE 1 MG TABLET (FP) PO SCH ×2 (10:47→21:48)
[2019-09-10] MEDS: NICOTINE POLACRILEX 2 MG GUM BC PRN (10:47)
[2019-09-10] MEDS: NICOTINE 14 MG/24 HOURS TOPICAL PATCH TD SCH (10:48)
[2019-09-10] MEDS: risperiDONE 2 MG TABLET PO SCH ×2 (10:48→21:48)
[2019-09-10] MEDS: HYDROCHLOROTHIAZIDE 12.5 MG CAPSULE (FP) PO SCH (10:48)
[2019-09-10] MEDS: PRENATAL VITAMINS W/ FOLIC ACID TABLET (FP) PO SCH (10:48)
[2019-09-10] MEDS: DULoxetine HCL 60 MG CAPSULE.DR PO SCH (10:49)
[2019-09-10] MEDS: TOLNAFTATE 1% CREAM 15 GM TUBE TP SCH ×2 (11:58→21:49)
[2019-09-10] MEDS: THIAMINE HCL 100 MG TABLET (FP) PO SCH (21:48)
[2019-09-10] MEDS: MELATONIN 5 MG TABLETS PO PRN (21:48)
[2019-09-11] MEDS: GABAPENTIN 400 MG CAPSULE (FP) PO SCH ×3 (05:59→21:28)
[2019-09-11] MEDS: PRENATAL VITAMINS W/ FOLIC ACID TABLET (FP) PO SCH (10:06)
[2019-09-11] MEDS: NICOTINE 14 MG/24 HOURS TOPICAL PATCH TD SCH (10:06)
[2019-09-11] MEDS: DULoxetine HCL 60 MG CAPSULE.DR PO SCH (10:06)
[2019-09-11] MEDS: risperiDONE 2 MG TABLET PO SCH ×2 (10:06→21:28)
[2019-09-11] MEDS: HYDROCHLOROTHIAZIDE 12.5 MG CAPSULE (FP) PO SCH (10:06)
[2019-09-11] MEDS: TOLNAFTATE 1% CREAM 15 GM TUBE TP SCH ×2 (10:06→22:01)
[2019-09-11] MEDS: BENZTROPINE MESYLATE 1 MG TABLET (FP) PO SCH ×2 (10:06→21:28)
--- NOTE | 2019-09-11 14:43 | DS ---
[facility] Rehab Discharge Summary - [facility] Rehab Discharge Summary Admission Date: 08/22/19 Discharge Date: 09/12/19 - History Present History: Alcohol dependence, Cocaine dependence Pertinent Past History: 54 y.o. man with history of alcohol and cocaine dependence He was last here for rehab in 12/2016. He was admitted to [facility] from 08/10/19 to and was treated for schizoaffective disorder. - Discharge Physical Exam Vital Signs: Vital Signs Temperature 97.8 F 09/11/19 06:46 Pulse Rate 86 09/11/19 09:30 Respiratory Rate 18 09/11/19 09:30 Blood Pressure 115/75 09/11/19 09:30 O2 Sat by Pulse Oximetry (%) Pertinent Admission Physical Exam Findings: Physical General Appearance: No Apparent Distress, HEENTM: Normocephalic, DIMITRIS Respiratory: Lungs Clear Neck: supple, Trachea in good position Cardiology: S1 S2 Abdominal: +Bowel Sounds, Non Tender, Flat Musculoskeletal: Unable to bear weight w/o assistance, dependent on rollator walker and cane Neurological: Cn 2-12 intact - Treatment Discharge Condition: Outpatient referral accepted (Medically stable for discharge. Will go to [facility] for housing and attend 12 step program.) Hospital Course: Patient attended groups, had 1:1 meeting with his counselor, was seen by the psychiatric service. He was adherent to his medication and treatment plan. - Medication Discharge Medications: Ambulatory Orders Gabapentin [Neurontin -] 400 mg PO TID #90 08/22/19 Benztropine Mesylate [Cogentin -] 1 mg PO BID #60 tablet 09/11/19 Duloxetine HCl [Cymbalta -] 60 mg PO DAILY #30 capsule. 09/11/19 Gabapentin [Neurontin -] 400 mg PO TID #30 capsule 09/11/19 Risperidone [Risperdal -] 2 mg PO BID #60 tablet 09/11/19 - Medication-Assisted Treatment (MAT) Medication-Assisted Treatment (MAT): No - Discharge Instructions Diet, activity, other medical instructions: Diet: as tolerated Activity: as tolerated Other medical instructions: Please follow up with plans to attend 12 step program. Please make appointment with PCP within 2 weeks of discharge. - Diagnosis (1) Alcohol dependence with intoxication, uncomplicated Status: Chronic (2) Cocaine dependence, uncomplicated Status: Chronic - Follow-up Referral Minutes to complete discharge: 20 - AMA Did Patient Leave Against Medical Advice: No
--- NOTE | 2019-09-11 15:30 | PN ---
[facility] Progress Note Note: Patient is scheduled for discharge tomorrow. Scripts for 30 days supply of medications(Cymbala 60 mg/day, Risperdal 2 mg/bid, Cogentin 1 mg /bid) will be electronically transmitted to [facility] at [address] [place] [address]
[2019-09-11] MEDS: NICOTINE POLACRILEX 2 MG GUM BC PRN (19:32)
[2019-09-11] MEDS: THIAMINE HCL 100 MG TABLET (FP) PO SCH (21:28)
[2019-09-11] MEDS: MELATONIN 5 MG TABLETS PO PRN (21:28)
[2019-09-12] MEDS: GABAPENTIN 400 MG CAPSULE (FP) PO SCH (06:16)
[2019-09-12 07:07] VITALS: BP 132/78; PULSE 84
[2019-09-12] MEDS: BENZTROPINE MESYLATE 1 MG TABLET (FP) PO SCH (09:03)
[2019-09-12] MEDS: PRENATAL VITAMINS W/ FOLIC ACID TABLET (FP) PO SCH (09:03)
[2019-09-12] MEDS ORDERED: PT OWN MED DRAWER 7, Y5N ONE (09:03)
[2019-09-12] MEDS: HYDROCHLOROTHIAZIDE 12.5 MG CAPSULE (FP) PO SCH (09:03)
[2019-09-12] MEDS: TOLNAFTATE 1% CREAM 15 GM TUBE TP SCH (09:04)
[2019-09-12] MEDS: risperiDONE 2 MG TABLET PO SCH (09:04)
[2019-09-12] MEDS: NICOTINE 14 MG/24 HOURS TOPICAL PATCH TD SCH (09:04)
[2019-09-12] MEDS: DULoxetine HCL 60 MG CAPSULE.DR PO SCH (09:04)
== END 2019-09-12 09:30 | disposition home or self-care (01) | DRG 772 ==
LOC: YASAS 15:01 → Y3W 19:32
PROVIDERS: ADMIT Neuromusculoskeletal Medicine & OMM; ATTEND Neuromusculoskeletal Medicine & OMM
PROC: HZ42ZZZ Group Counseling for Substance Abuse Treatment, Cognitive-Behavioral (ICD-10-PCS; principal; 2019-08-22)
DX: F10.20 Alcohol dependence, uncomplicated (principal); F14.20 Cocaine dependence, uncomplicated; F17.210 Nicotine dependence, cigarettes, uncomplicated; F25.9 Schizoaffective disorder, unspecified; M50.20 Other cervical disc displacement, unspecified cervical region; M41.9 Scoliosis, unspecified; G62.9 Polyneuropathy, unspecified; Z98.1 Arthrodesis status; R60.0 Localized edema; Z99.89 Dependence on other enabling machines and devices; Z88.8 Allergy status to other drugs, medicaments and biological substances
CPT/HCPCS: 36415; 71046-TC-FY; 80053; 81003; 85027; 86593

== ENCOUNTER 2021-07-16 09:50 | Inpatient (IN) | payer OTHER ==
[2021-07-16 10:16] VITALS: BMI 22.6
[2021-07-16] MEDS ORDERED: METHOCARBAMOL 500 MG TABLET PO PRN (12:47)
[2021-07-16] MEDS ORDERED: BISMUTH SUBSALICYLATE 524 MG/30 ML PO PRN (12:47)
[2021-07-16] MEDS ORDERED: ACETAMINOPHEN 325 MG TABLET (FP) PO PRN ×2 (12:47)
[2021-07-16] MEDS ORDERED: MAGNESIUM HYDROX 2400MG/30ML ORAL SUSPENSION 30 ML CUP PO PRN (12:47)
[2021-07-16] MEDS ORDERED: MAG HYDROX/AL HYDROX/SIMETH 30 ML UNIT-DOSE CUP PO PRN (12:47)
[2021-07-16] MEDS ORDERED: MAGNESIUM CITRATE 300 ML BOTTLE PO PRN (12:47)
[2021-07-16] MEDS ORDERED: diazePAM 5 MG TABLET PO PRN (12:47)
[2021-07-16] MEDS ORDERED: MENTHOL/PHENOL 1 EACH UD MM PRN (12:47)
[2021-07-16] MEDS ORDERED: ONDANSETRON *ODT* 4 MG TABLET SL PRN (12:47)
[2021-07-16] MEDS ORDERED: NICOTINE 10 MG CARTRIDGE (INHALER) IH PRN (12:47)
[2021-07-16] MEDS ORDERED: PATIENT'S OWN MEDICATION (NON-FORMULARY) (Meloxicam [Mobic] 15 MG Tablet) PO PRN (12:49)
[2021-07-16] MEDS: GABAPENTIN 400 MG CAPSULE PO SCH ×2 (15:20→22:39)
[2021-07-16] MEDS: BRIMONIDINE TARTRATE 0.2% OPHTHALMIC 5 ML BOTTLE OU SCH ×2 (15:20→22:41)
[2021-07-16] MEDS: hydrOXYzine PAMOATE 25 MG CAPSULE (FP) PO SCH ×3 (15:20→22:39)
[2021-07-16] MEDS: NICOTINE 14 MG/24 HOURS TOPICAL PATCH TD SCH (15:20)
[2021-07-16] MEDS: PRENATAL VITAMINS W/ FOLIC ACID TABLET (FP) PO SCH (15:21)
[2021-07-16] MEDS: diazePAM 5 MG TABLET PO SCH ×2 (17:41→22:39)
[2021-07-16 18:47] LABS: HEMATOCRIT 37.1 % (35.4-49); HEMOGLOBIN 12.7 GM/dL (11.7-16.9); MCH 30.2 pg (25.7-33.7); MCHC 34.3 g/dl (32.0-35.9); MEAN PLT VOLUME 7.3 fl (7.5-11.1); PLATELET COUNT 208 10^3/uL (134-434); RBC 4.22 M/mm3 (4.00-5.60); RDW 13.9 % (11.9-15.9); WHITE BLOOD COUNT 7.8 K/mm3 (4.0-10.0)
[2021-07-16 18:49] LABS: ALBUMIN 3.6 g/dl (3.4-5.0); BLOOD UREA NITROGEN 12.1 mg/dL (7-18); CALCIUM 8.6 mg/dL (8.5-10.1)
[2021-07-16 18:52] LABS: CREATININE 0.8 mg/dL (0.55-1.3)
[2021-07-16 18:53] LABS: BILIRUBIN,TOTAL 0.8 mg/dL (0.2-1)
[2021-07-16] MEDS: THIAMINE HCL 100 MG TABLET (FP) PO SCH (22:39)
[2021-07-16] MEDS: MELATONIN 5 MG TABLETS PO SCH (22:39)
[2021-07-16] MEDS: LATANOPROST 0.005% OPHTH SOLN 2.5ML BOTTLE OU SCH (22:42)
[2021-07-17] MEDS: GABAPENTIN 400 MG CAPSULE PO SCH ×3 (06:09→22:43)
[2021-07-17] MEDS: diazePAM 5 MG TABLET PO SCH ×4 (06:09→22:43)
[2021-07-17] MEDS: BRIMONIDINE TARTRATE 0.2% OPHTHALMIC 5 ML BOTTLE OU SCH ×3 (06:10→22:50)
[2021-07-17] MEDS: hydrOXYzine PAMOATE 25 MG CAPSULE (FP) PO SCH ×5 (07:16→22:51)
[2021-07-17] MEDS: PRENATAL VITAMINS W/ FOLIC ACID TABLET (FP) PO SCH (10:35)
[2021-07-17] MEDS: NICOTINE 14 MG/24 HOURS TOPICAL PATCH TD SCH (10:35)
[2021-07-17] MEDS ORDERED: MASKS NR ONE (21:00)
[2021-07-17] MEDS: MELATONIN 5 MG TABLETS PO SCH (22:44)
[2021-07-17] MEDS: THIAMINE HCL 100 MG TABLET (FP) PO SCH (22:44)
[2021-07-17] MEDS: LATANOPROST 0.005% OPHTH SOLN 2.5ML BOTTLE OU SCH (22:51)
[2021-07-18] MEDS: GABAPENTIN 400 MG CAPSULE PO SCH ×3 (06:59→22:39)
[2021-07-18] MEDS: diazePAM 5 MG TABLET PO SCH ×3 (06:59→22:39)
[2021-07-18] MEDS: BRIMONIDINE TARTRATE 0.2% OPHTHALMIC 5 ML BOTTLE OU SCH ×3 (06:59→22:40)
[2021-07-18] MEDS: hydrOXYzine PAMOATE 25 MG CAPSULE (FP) PO SCH ×5 (07:07→22:39)
[2021-07-18] MEDS: NICOTINE 14 MG/24 HOURS TOPICAL PATCH TD SCH (10:29)
[2021-07-18] MEDS: PRENATAL VITAMINS W/ FOLIC ACID TABLET (FP) PO SCH (10:29)
[2021-07-18] MEDS: THIAMINE HCL 100 MG TABLET (FP) PO SCH (22:39)
[2021-07-18] MEDS: MELATONIN 5 MG TABLETS PO SCH (22:39)
[2021-07-18] MEDS: LATANOPROST 0.005% OPHTH SOLN 2.5ML BOTTLE OU SCH (22:40)
[2021-07-19] MEDS: hydrOXYzine PAMOATE 25 MG CAPSULE (FP) PO SCH ×5 (06:30→22:33)
[2021-07-19] MEDS: diazePAM 5 MG TABLET PO SCH ×2 (06:30→18:25)
[2021-07-19] MEDS: GABAPENTIN 400 MG CAPSULE PO SCH ×3 (06:30→22:33)
[2021-07-19] MEDS: BRIMONIDINE TARTRATE 0.2% OPHTHALMIC 5 ML BOTTLE OU SCH ×3 (06:31→22:33)
[2021-07-19] MEDS: NICOTINE 14 MG/24 HOURS TOPICAL PATCH TD SCH (10:26)
[2021-07-19] MEDS: PRENATAL VITAMINS W/ FOLIC ACID TABLET (FP) PO SCH (10:26)
[2021-07-19] MEDS: LATANOPROST 0.005% OPHTH SOLN 2.5ML BOTTLE OU SCH (22:33)
[2021-07-19] MEDS: THIAMINE HCL 100 MG TABLET (FP) PO SCH (22:33)
[2021-07-19] MEDS: MELATONIN 5 MG TABLETS PO SCH (22:33)
[2021-07-20] MEDS ORDERED: diazePAM 5 MG TABLET PO ONE (06:00)
[2021-07-20] MEDS: GABAPENTIN 400 MG CAPSULE PO SCH ×2 (06:30→13:07)
[2021-07-20] MEDS: hydrOXYzine PAMOATE 25 MG CAPSULE (FP) PO SCH ×3 (06:30→13:09)
[2021-07-20] MEDS: BRIMONIDINE TARTRATE 0.2% OPHTHALMIC 5 ML BOTTLE OU SCH ×2 (06:31→13:09)
[2021-07-20] MEDS: PRENATAL VITAMINS W/ FOLIC ACID TABLET (FP) PO SCH (10:25)
[2021-07-20] MEDS: NICOTINE 14 MG/24 HOURS TOPICAL PATCH TD SCH (10:32)
[2021-07-20 12:40] VITALS: BP 119/71; PULSE 64; TEMP 97.5
== END 2021-07-20 15:03 | disposition other institution (70) | DRG 774 ==
LOC: YASAS 09:50 → Y3N 12:37
PROVIDERS: ADMIT Allergy & Immunology; ATTEND Allergy & Immunology
PROC: HZ2ZZZZ Detoxification Services for Substance Abuse Treatment (ICD-10-PCS; principal; 2021-07-16)
DX: F10.230 Alcohol dependence with withdrawal, uncomplicated (principal); F14.20 Cocaine dependence, uncomplicated; F17.210 Nicotine dependence, cigarettes, uncomplicated; F31.9 Bipolar disorder, unspecified; G62.9 Polyneuropathy, unspecified; H40.9 Unspecified glaucoma; M62.81 Muscle weakness (generalized); M54.50 Low back pain, unspecified; G89.29 Other chronic pain; R76.11 Nonspecific reaction to tuberculin skin test without active tuberculosis; R29.6 Repeated falls; Z99.89 Dependence on other enabling machines and devices; Z88.8 Allergy status to other drugs, medicaments and biological substances; Z59.02 Unsheltered homelessness
CPT/HCPCS: 36415; 71046-TC-FY; 80053; 85027; 86780; C9803; U0003; U0005

== ENCOUNTER 2021-07-20 15:06 | Inpatient (IN) | payer OTHER ==
[2021-07-20] MEDS ORDERED: LOPERAMIDE HCL 2 MG CAPSULE PO PRN (15:52)
[2021-07-20] MEDS ORDERED: P-EPHED 60MG/TRIPROLIDI 2.5MG TABLET PO PRN (15:52)
[2021-07-20] MEDS ORDERED: MAG HYDROX/AL HYDROX/SIMETH 30 ML UNIT-DOSE CUP PO PRN (15:52)
[2021-07-20] MEDS ORDERED: MAGNESIUM CITRATE 300 ML BOTTLE PO PRN (15:52)
[2021-07-20] MEDS ORDERED: IBUPROFEN 400 MG TABLET (FP) PO PRN (15:52)
[2021-07-20] MEDS ORDERED: PATIENT'S OWN MEDICATION (NON-FORMULARY) (Meloxicam [Mobic] 15 MG Tablet) PO PRN (15:52)
[2021-07-20] MEDS ORDERED: MENTHOL/PHENOL 1 EACH UD MM PRN (15:52)
[2021-07-20] MEDS ORDERED: guaiFENesin 200 MG/10 ML 10 ML UNIT-DOSE CUPS PO PRN (15:52)
[2021-07-20] MEDS ORDERED: ACETAMINOPHEN 325 MG TABLET (FP) PO PRN (15:52)
[2021-07-20] MEDS ORDERED: MAGNESIUM HYDROX 2400MG/30ML ORAL SUSPENSION 30 ML CUP PO PRN (15:52)
[2021-07-20] MEDS ORDERED: PT OWN MED DRAWER 7, Y5N ONE (19:57)
[2021-07-20] MEDS: MELATONIN 5 MG TABLETS PO SCH (22:11)
[2021-07-20] MEDS: GABAPENTIN 400 MG CAPSULE PO SCH (22:11)
[2021-07-20] MEDS: THIAMINE HCL 100 MG TABLET (FP) PO SCH (22:11)
[2021-07-20] MEDS: BRIMONIDINE TARTRATE 0.2% OPHTHALMIC 5 ML BOTTLE OU SCH (22:12)
[2021-07-20] MEDS: LATANOPROST 0.005% OPHTH SOLN 2.5ML BOTTLE OU SCH (22:13)
[2021-07-21] MEDS: GABAPENTIN 400 MG CAPSULE PO SCH ×3 (06:46→21:47)
[2021-07-21] MEDS: BRIMONIDINE TARTRATE 0.2% OPHTHALMIC 5 ML BOTTLE OU SCH ×3 (06:47→21:48)
[2021-07-21] MEDS: PRENATAL VITAMINS W/ FOLIC ACID TABLET (FP) PO SCH (10:29)
[2021-07-21] MEDS: MELATONIN 5 MG TABLETS PO SCH (21:47)
[2021-07-21] MEDS: THIAMINE HCL 100 MG TABLET (FP) PO SCH (21:48)
[2021-07-21] MEDS: LATANOPROST 0.005% OPHTH SOLN 2.5ML BOTTLE OU SCH (21:48)
[2021-07-22] MEDS: GABAPENTIN 400 MG CAPSULE PO SCH ×3 (07:00→21:29)
[2021-07-22] MEDS: BRIMONIDINE TARTRATE 0.2% OPHTHALMIC 5 ML BOTTLE OU SCH ×3 (07:01→21:32)
[2021-07-22] MEDS: PRENATAL VITAMINS W/ FOLIC ACID TABLET (FP) PO SCH (09:59)
[2021-07-22] MEDS: MELATONIN 5 MG TABLETS PO SCH (21:29)
[2021-07-22] MEDS: QUEtiapine FUMARATE 50 MG TABLET PO SCH (21:29)
[2021-07-22] MEDS: THIAMINE HCL 100 MG TABLET (FP) PO SCH (21:29)
[2021-07-22] MEDS: LATANOPROST 0.005% OPHTH SOLN 2.5ML BOTTLE OU SCH (21:32)
[2021-07-23] MEDS: BRIMONIDINE TARTRATE 0.2% OPHTHALMIC 5 ML BOTTLE OU SCH ×3 (06:17→21:10)
[2021-07-23] MEDS: GABAPENTIN 400 MG CAPSULE PO SCH ×3 (06:17→21:10)
[2021-07-23] MEDS: PRENATAL VITAMINS W/ FOLIC ACID TABLET (FP) PO SCH (10:33)
[2021-07-23] MEDS: THIAMINE HCL 100 MG TABLET (FP) PO SCH (21:10)
[2021-07-23] MEDS: MELATONIN 5 MG TABLETS PO SCH (21:10)
[2021-07-23] MEDS: QUEtiapine FUMARATE 50 MG TABLET PO SCH (21:10)
[2021-07-23] MEDS: LATANOPROST 0.005% OPHTH SOLN 2.5ML BOTTLE OU SCH (21:11)
[2021-07-24] MEDS: BRIMONIDINE TARTRATE 0.2% OPHTHALMIC 5 ML BOTTLE OU SCH ×3 (06:50→21:39)
[2021-07-24] MEDS: GABAPENTIN 400 MG CAPSULE PO SCH ×3 (06:50→21:40)
[2021-07-24] MEDS: PRENATAL VITAMINS W/ FOLIC ACID TABLET (FP) PO SCH (10:52)
[2021-07-24] MEDS: THIAMINE HCL 100 MG TABLET (FP) PO SCH (21:38)
[2021-07-24] MEDS: MELATONIN 5 MG TABLETS PO SCH (21:38)
[2021-07-24] MEDS: QUEtiapine FUMARATE 50 MG TABLET PO SCH (21:40)
[2021-07-24] MEDS: LATANOPROST 0.005% OPHTH SOLN 2.5ML BOTTLE OU SCH (21:40)
[2021-07-24] MEDS: hydrOXYzine PAMOATE 25 MG CAPSULE (FP) PO PRN (21:40)
[2021-07-25] MEDS: BRIMONIDINE TARTRATE 0.2% OPHTHALMIC 5 ML BOTTLE OU SCH ×3 (06:41→21:15)
[2021-07-25] MEDS: GABAPENTIN 400 MG CAPSULE PO SCH ×3 (06:41→21:14)
[2021-07-25] MEDS: PRENATAL VITAMINS W/ FOLIC ACID TABLET (FP) PO SCH (10:39)
[2021-07-25] MEDS: MELATONIN 5 MG TABLETS PO SCH (21:14)
[2021-07-25] MEDS: QUEtiapine FUMARATE 50 MG TABLET PO SCH (21:14)
[2021-07-25] MEDS: THIAMINE HCL 100 MG TABLET (FP) PO SCH (21:14)
[2021-07-25] MEDS: LATANOPROST 0.005% OPHTH SOLN 2.5ML BOTTLE OU SCH (21:15)
[2021-07-26] MEDS: BRIMONIDINE TARTRATE 0.2% OPHTHALMIC 5 ML BOTTLE OU SCH ×3 (06:45→21:58)
[2021-07-26] MEDS: GABAPENTIN 400 MG CAPSULE PO SCH ×3 (06:45→21:58)
[2021-07-26] MEDS: PRENATAL VITAMINS W/ FOLIC ACID TABLET (FP) PO SCH (10:55)
[2021-07-26] MEDS: QUEtiapine FUMARATE 50 MG TABLET PO SCH (21:57)
[2021-07-26] MEDS: THIAMINE HCL 100 MG TABLET (FP) PO SCH (21:57)
[2021-07-26] MEDS: MELATONIN 5 MG TABLETS PO SCH (21:57)
[2021-07-26] MEDS: LATANOPROST 0.005% OPHTH SOLN 2.5ML BOTTLE OU SCH (21:58)
[2021-07-27] MEDS: BRIMONIDINE TARTRATE 0.2% OPHTHALMIC 5 ML BOTTLE OU SCH ×3 (06:51→21:14)
[2021-07-27] MEDS: GABAPENTIN 400 MG CAPSULE PO SCH ×3 (06:51→21:13)
[2021-07-27] MEDS: PRENATAL VITAMINS W/ FOLIC ACID TABLET (FP) PO SCH (10:27)
[2021-07-27] MEDS: hydrOXYzine PAMOATE 25 MG CAPSULE (FP) PO PRN (15:41)
[2021-07-27] MEDS: THIAMINE HCL 100 MG TABLET (FP) PO SCH (21:13)
[2021-07-27] MEDS: QUEtiapine FUMARATE 50 MG TABLET PO SCH (21:13)
[2021-07-27] MEDS: MELATONIN 5 MG TABLETS PO SCH (21:13)
[2021-07-27] MEDS: LATANOPROST 0.005% OPHTH SOLN 2.5ML BOTTLE OU SCH (21:14)
[2021-07-28] MEDS: GABAPENTIN 400 MG CAPSULE PO SCH (06:44)
[2021-07-28] MEDS: BRIMONIDINE TARTRATE 0.2% OPHTHALMIC 5 ML BOTTLE OU SCH (06:44)
[2021-07-28 07:10] VITALS: BP 146/91; PULSE 60; TEMP 98.6
[2021-07-28] MEDS ORDERED: METHOCARBAMOL 500 MG TABLET PO PRN (08:46)
[2021-07-28] MEDS ORDERED: LIDOCAINE 5% TOPICAL PATCH TP SCH (10:00)
[2021-07-28] MEDS: PRENATAL VITAMINS W/ FOLIC ACID TABLET (FP) PO SCH ×2 (10:16→10:17)
[2021-07-28] MEDS ORDERED: PT OWN MED DRAWER 7, Y5N ONE (10:19)
[2021-07-28] MEDS ORDERED: LIDOCAINE PATCH REMOVAL MC SCH (22:00)
== END 2021-07-28 10:31 | disposition home or self-care (01) | DRG 772 ==
LOC: YASAS 15:06 → Y3W 15:07
PROVIDERS: ADMIT Allergy & Immunology; ATTEND Allergy & Immunology
PROC: HZ42ZZZ Group Counseling for Substance Abuse Treatment, Cognitive-Behavioral (ICD-10-PCS; principal; 2021-07-20)
DX: F10.20 Alcohol dependence, uncomplicated (principal); F14.20 Cocaine dependence, uncomplicated; F17.210 Nicotine dependence, cigarettes, uncomplicated; F25.9 Schizoaffective disorder, unspecified; F31.9 Bipolar disorder, unspecified; F19.24 Other psychoactive substance dependence with psychoactive substance-induced mood disorder; M19.90 Unspecified osteoarthritis, unspecified site; Z62.810 Personal history of physical and sexual abuse in childhood; Z91.410 Personal history of adult physical and sexual abuse; Z98.1 Arthrodesis status; Z99.89 Dependence on other enabling machines and devices; Z59.02 Unsheltered homelessness; Z56.0 Unemployment, unspecified; Z88.8 Allergy status to other drugs, medicaments and biological substances